=== PATIENT | male | born 1970 | race Asian ===

== ENCOUNTER 2023-09-28 00:19 | Emergency (ER) | payer BC ==
[~2023-09-28] VITALS: Ht 175.3 cm; Wt 90.7 kg
[2023-09-28] MEDS ORDERED: AMLO-212 PO (00:44)
[2023-09-28] MEDS ORDERED: IOHEXOL 300MG/ML 100 ML INFUS..BTL ONE (01:06)
[2023-09-28] MEDS ORDERED: SWABABLE VALVE TRANSFER SET EA MC ONE (01:06)
[2023-09-28] MEDS ORDERED: IV NORMAL SALINE 250 ML IV ONE (01:06)
[2023-09-28 01:22] LABS: BASOPHILS # (AUTO) 0.1 K/UL (0.0-0.2); BASOPHILS % (AUTO) 0.8 % (0.0-2.0); EOSINOPHILS # (AUTO) 0.3 K/uL (0.0-0.7); EOSINOPHILS % (AUTO) 2.5 % (0.0-7.0); HEMATOCRIT 41.8 % (36.7-47.1); HEMOGLOBIN 14.2 g/dL (12.5-16.3); LYMPHOCYTES # (AUTO) 2.2 K/uL (0.8-4.8); LYMPHOCYTES % (AUTO) 18.9 % (20.5-51.5); MEAN CORPUSCULAR HEMOGLOBIN 31.5 uug (23.8-33.4); MEAN CORPUSCULAR HGB CONC 34 g/dL (32.5-36.3); MEAN CORPUSCULAR VOLUME 92.6 fL (73.0-96.2); MONOCYTES # (AUTO) 1.1 K/uL (0.1-1.30); MONOCYTES % (AUTO) 9.2 % (0.0-11.0); NEUTROPHILS % (AUTO) 68.6 % (38.5-71.5); PLATELET COUNT (AUTO) 378 K/uL (152-348); RED BLOOD CELL COUNT(AUTO) 4.52 MIL/uL (4.06-5.63); RED CELL DISTRIBUTION WIDTH 13.1 % (12.1-16.2); WHITE BLOOD COUNT (AUTO) 11.7 K/uL (3.6-10.2)
[2023-09-28 01:30] LABS: DIFFERENTIAL COMMENT 1
[2023-09-28 01:38] LABS: CALCIUM 9.2 mg/dL (8.5-10.1); POTASSIUM 3.8 mmol/L (3.5-5.1)
[2023-09-28 01:44] LABS: BILIRUBIN,TOTAL 0.3 mg/dL (0.2-1.0); TOTAL PROTEIN, SERUM 7.6 g/dL (6.4-8.2)
[2023-09-28] MEDS ORDERED: HYDR-4209 PO (03:46)
[2023-09-28] MEDS ORDERED: CIPR500S3 PO (03:46)
[2023-09-28] MEDS ORDERED: CETI1SOL7 PO (03:46)
[2023-09-28] MEDS ORDERED: IBUP-1955 PO (03:46)
[2023-09-28] MEDS ORDERED: CETI10CA8 PO (03:48)
[2023-09-28] MEDS ORDERED: CIPROFLOXACIN HCL 250 MG TABLET ONE (03:55)
[2023-09-28 03:58] VITALS: BP 134/87; O2SAT 97
[2023-09-28] MEDS ORDERED: CIPROFLOXACIN HCL 250 MG TABLET PO ONE (04:00)
== END 2023-09-28 03:58 | disposition home or self-care (01) ==
LOC: ER 00:26
DX: R50.9 Fever, unspecified (principal); H92.09 Otalgia, unspecified ear; R51.9 Headache, unspecified; I10 Essential (primary) hypertension; Z79.899 Other long term (current) drug therapy
CPT/HCPCS: 36415; 70487; 85025; A4606; A4663; Q9967